=== PATIENT | male | born 1995 | race Caucasian/White ===

== ENCOUNTER 2019-05-23 19:01 | Emergency (ER) | payer OTHER ==
[~2019-05-23] VITALS: Ht 170.2 cm; Wt 81.6 kg
[2019-05-23] MEDS ORDERED: FLUORESCEIN SODIUM OPHTH 1 EA STRIP ONE (19:37)
--- NOTE | 2019-05-23 19:41 | NUR ---
PT BIBS C/O R EYE WATERY, PAIN, REDNESS SINCE YESTERDAY, BED 3 BEING SEEN BY MD
--- NOTE | 2019-05-23 20:14 | NUR ---
Patient discharged to home in stable condition. Written and verbal after care instructions given. Patient verbalizes understanding of instruction.
[2019-05-23 20:15] VITALS: BP 122/63
== END 2019-05-23 20:16 | disposition home or self-care (01) ==
LOC: ER 19:09
DX: H10.89 Other conjunctivitis (principal); B99.8 Other infectious disease

== ENCOUNTER 2019-08-02 18:50 | Emergency (ER) | payer OTHER ==
[~2019-08-02] VITALS: Ht 170.2 cm; Wt 81.6 kg
--- NOTE | 2019-08-02 21:01 | NUR ---
BIBSELF FROM HOME TO ER BED10. AAOX4. NO RESP DISTRESS NOTED. AMBULATORY. C/O L HAND SWELLING S/P FALL. PT REPORTS THAT HE TRIPPED AND FELL IN HIS L HAND. NOTE SWELLING ON THE L 2ND AND 3RD DIGIT W/ NOTED LIMITED ROM. PT DENIES PAIN. HIS MAIN CONCEN IS THAT HE CANT BEND HIS FINGERS. ANTONIO GRULLON AT BEDSIDE FOR EVAL. AWAITING FOR XRAY
--- NOTE | 2019-08-02 21:57 | NUR ---
EMT AT BEDSIDE FOR SPLINTING
--- NOTE | 2019-08-02 22:10 | NUR ---
Patient discharged to home in stable condition. Written and verbal after care instructions given. Patient verbalizes understanding of instruction. Pt ambulatory with a steady gait
[2019-08-02 22:36] VITALS: BP 128/88
== END 2019-08-02 22:10 | disposition home or self-care (01) ==
LOC: ER 19:00
DX: S63.691A Other sprain of left index finger, initial encounter (principal); S63.693A Other sprain of left middle finger, initial encounter; W18.39XA Other fall on same level, initial encounter; Y93.89 Activity, other specified; Y92.89 Other specified places as the place of occurrence of the external cause; Y99.8 Other external cause status
CPT/HCPCS: 73140-TC